=== PATIENT | female | born 1945 | race American Indian/Alaskan Native ===

== ENCOUNTER 2017-12-26 14:09 | Outpatient (CLI) | payer MEDICARE ==
[2017-12-26 14:59] LABS: Blood Urea Nitrogen 15 mg/dL (7-17)
--- NOTE | 2017-12-27 14:54 | Cat Scan Report ---
FINAL REPORT EXAM: CT ANGIO ABD/FEMORAL ABD AORTA HISTORY: ANEURYSM OF ARTERY OF LOWER EXTREMITY, VENOUS INSUFFICIENCY TECHNIQUE: CT angiography of the abdomen, pelvis with lower extremity runoff. IV contrast was administered. Axial images and coronal and sagittal reformatted images were obtained. PRIORS: None. FINDINGS: There is some dependent atelectasis at the lung bases. There is a left lower lobe nodule along the major fissure which measures 6 mm. There is fatty infiltration of the liver. There is some gastric antral wall thickening worrisome for gastritis. There is a midline upper abdominal ventral hernia containing a small bowel loop but not causing obstruction. There is a left periumbilical ventral hernia small to moderate in size containing bowel loops. This also does not cause obstruction. The visualized liver, spleen, pancreas, adrenal glands and kidneys demonstrate no significant abnormalities. There is a 5 mm nonobstructing left intrarenal calculus. There are several small right renal cysts. There is no evidence of intestinal obstruction. The appendix is normal. There are no abnormal fluid collections seen. There is no free intraperitoneal air. The bladder is unremarkable. There are aortoiliac atherosclerotic calcifications. There is no abdominal aortic aneurysm. There are iliac stent grafts bilaterally which are patent. There is an aneurysm involving right common femoral artery. This measures about 3.5 cm diameter and demonstrates a moderate amount of mural thrombus. There are femoral artery stent graft bilaterally. The right deep femoral artery is patent. There is no significant flow within proximal and mid superficial femoral artery distal to the aneurysm. There is minimal flow reconstitution in the distal most super femoral artery and popliteal artery. Right-sided calf arteries are patent but demonstrate attenuated flow. On the left side femoral artery stent is patent. The left deep femoral artery appears occluded. There is a collapsed/occluded femoral popliteal bypass graft. There is flow within common femoral, superficial femoral, popliteal, anterior tibial and peroneal arteries. Distal aspect of left posterior tibial artery is poorly visualized and probably occluded. Flow within the left peroneal artery is attenuated. 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 There is a moderate amount of mural thrombus. 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 There is reconstituted flow distally with flow seen and popliteal and calf arteries. Although distal arteries are patent, flow is attenuated. Right deep femoral artery is patent supplying majority flow to right lower extremity. Left deep femoral artery is occluded. No flow seen in distal posterior tibial artery. Attenuated flow within left coronal artery. Left fem-pop bypass graft is collapsed/occluded. 6 mm left lower lobe pulmonary nodule. If stability cannot be established by comparison to old studies, follow-up in 12 months for low risk patient and 6-12 months then 18-24 months for high risk patient. Mild fatty liver. 5 mm nonobstructing calculus in the left kidney. There are 2 ventral hernias, both containing bowel but not causing obstruction. Gastric antral wall thickening is concerning for gastritis.
== END 2017-12-26 14:10 | disposition home or self-care (01) ==
LOC: CT 14:09
PROVIDERS: ATTEND Radiology Diagnostic Radiology
DX: N28.1 Cyst of kidney, acquired (principal); I87.2 Venous insufficiency (chronic) (peripheral); I70.213 Atherosclerosis of native arteries of extremities with intermittent claudication, bilateral legs; I70.222 Atherosclerosis of native arteries of extremities with rest pain, left leg; I10 Essential (primary) hypertension; I72.4 Aneurysm of artery of lower extremity; K76.0 Fatty (change of) liver, not elsewhere classified; K43.9 Ventral hernia without obstruction or gangrene; I74.8 Embolism and thrombosis of other arteries; R91.1 Solitary pulmonary nodule; N20.0 Calculus of kidney; E08.8 Diabetes mellitus due to underlying condition with unspecified complications
CPT/HCPCS: 36415; 75635; 82565; 84520; Q9967